=== PATIENT | female | born 1975 | race African-American/Black ===

== ENCOUNTER 2016-06-24 13:06 | Emergency (ER) | payer OTHER ==
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
[2016-06-24 13:22] VITALS: BP 119/70; PULSE 69; TEMP 98.7; BMI 22.4
== END 2016-06-24 14:13 | disposition home or self-care (01) ==
LOC: FER 13:06
DX: S41.151A Open bite of right upper arm, initial encounter (principal); W50.3XXA Accidental bite by another person, initial encounter; Y93.89 Activity, other specified; Y92.219 Unspecified school as the place of occurrence of the external cause; Y99.0 Civilian activity done for income or pay
CPT/HCPCS: 99282-25

== ENCOUNTER 2016-08-11 10:51 | Emergency (ER) | payer OTHER ==
[2016-08-11 11:04] VITALS: TEMP 98.1
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
[2016-08-11 11:07] VITALS: BMI 23.3
[2016-08-11] MEDS ORDERED: METOCLOPRAMIDE HCL INJECTION 10 MG/2 ML VIAL IVPB ONE (11:12)
[2016-08-11] MEDS ORDERED: MAGNESIUM SULF 50% (8.12 MEQ/2 ML-1 GM VIAL) IVPB ONE (11:13)
[2016-08-11] MEDS ORDERED: SODIUM CHLORIDE 1,000 ML IV SCH (11:15)
[2016-08-11 11:46] LABS: BASOPHIL 3.9 % (0-2.0); EOSINOPHIL 2.1 % (0-4.5); MCH 26.9 pg (25.7-33.7); MCHC 33.2 g/dl (32.0-36.0); MEAN CELL VOLUME 81.2 fl (80-96); MEAN PLT VOLUME 8.4 fl (7.5-11.1); NEUTROPHILS 64.9 % (42.8-82.8); PLATELET COUNT 235 K/MM3 (134-434); RDW 12.8 % (11.6-15.6); WHITE BLOOD COUNT 8.6 K/mm3 (4.0-10.8)
[2016-08-11 11:47] LABS: CALCIUM 9.4 mg/dl (8.4-10.2); COCKROFT - GAULT 91.834; CREATININE 0.8 mg/dl (0.6-1.3)
[2016-08-11] MEDS ORDERED: KETOROLAC TROMETHAMINE 30 MG/1 ML VIAL IVPUSH ONE (12:06)
[2016-08-11] MEDS ORDERED: KETOROLAC TROMETHAMINE 30 MG/1 ML VIAL ONE (12:30)
[2016-08-11] MEDS ORDERED: ACETAMINOPHEN 1000 MG/100 ML VIAL (NON FORMULARY) IVPB ONE (12:53)
[2016-08-11] MEDS ORDERED: ACETAMINOPHEN INJECTION 100 ML IVPB ONE (12:55)
[2016-08-11] MEDS ORDERED: PSEUDOEPHEDRINE HCL 30 MG TABLET ONE (12:59)
[2016-08-11] MEDS ORDERED: PSEUDOEPHEDRINE HCL 30 MG TABLET PO ONE (13:00)
[2016-08-11 13:38] VITALS: BP 116/70; PULSE 60
== END 2016-08-11 13:47 | disposition home or self-care (01) ==
LOC: FER 10:51
PROC: 3E033NZ Introduction of Analgesics, Hypnotics, Sedatives into Peripheral Vein, Percutaneous Approach (ICD-10-PCS; principal; 2016-08-11)
PROC: 3E0333Z Introduction of Anti-inflammatory into Peripheral Vein, Percutaneous Approach (ICD-10-PCS; 2016-08-11)
PROC: 3E033GC Introduction of Other Therapeutic Substance into Peripheral Vein, Percutaneous Approach (ICD-10-PCS; 2016-08-11)
PROC: 3E0337Z Introduction of Electrolytic and Water Balance Substance into Peripheral Vein, Percutaneous Approach (ICD-10-PCS; 2016-08-11)
DX: J01.30 Acute sphenoidal sinusitis, unspecified (principal); R00.2 Palpitations
CPT/HCPCS: 36415; 70450-TC; 80048; 84703; 85025; 99283-25

== ENCOUNTER 2016-12-02 10:08 | Emergency (ER) | payer OTHER ==
[2016-12-02 10:14] VITALS: BP 115/73; PULSE 73; TEMP 98.5; BMI 22.8
--- NOTE | 2016-12-02 11:14 | PDOC ---
History of Present Illness - General Chief Complaint: Cold Symptoms Stated Complaint: cold Time Seen by Provider: 12/02/16 10:15 - History of Present Illness Initial Comments: 12/02/16 11:35 Chief complaint: Congestion and facial pain History of present illness: Patient complains of cold symptoms for several days with nasal congestion, pain in the right cheek, low-grade fever. Denies productive cough, chest pain, or shortness of breath Review of systems: As above. Otherwise noncontributory Past medical history: Healthy female, mild asthma but no asthma symptoms for several years. 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 No tobacco alcohol or nonprescription drugs. Fully active and without disability Physical exam: Alert oriented 3 well-developed well-nourished, mild distress due to nasal congestion. Afebrile, vital signs normal Conjunctivae clear. PERRLA, fundi benign, ears clear. There is significant nasal congestion and tenderness over the right maxillary sinus to palpation. Throat mildly injected without exudates swelling or mass Neck supple without bruit mass or nodes Chest clear with full breath sounds throughout bilaterally, no wheezes rales or rhonchi CV regular without murmur rub or gallop Abdomen soft nontender without mass or organomegaly Skin clear, no rash, adequate turgor and wet mucous membranes Neurological C2 to 12 intact. No focal sensory or motor deficits. Strength full and symmetric. Gait stable and unimpaired Impression: Right maxillary sinusitis Plan: Since patient is ALLERGIC to penicillins, azithromycin, decongestants, expectorant, and ibuprofen prescribed. Rest and fluids and follow-up if no improvement recommended. Patient fully ambulatory and in no significant distress upon discharge to follow-up as directed Past History - Past Medical History Allergies/Adverse Reactions: Allergies Allergy/AdvReac Type Severity Reaction Status Date / Time Penicillins Allergy Intermediate Verified 12/02/16 10:10 Home Medications: Ambulatory Orders Azithromycin [Zithromax 250mg Tablets -] 250 mg PO UTDICT #6 tab 12/02/16 Fexofenadine/Pseudoephedrine [Milvia-D 24 Hour Tablet] 1 tab PO DAILY PRN #10 tab.er.24h 12/02/16 Guaifenesin AC [Robitussin-AC] 1 - 2 tsp PO HS PRN #90 ml MDD 10 12/02/16 Ibuprofen 600 mg PO TID PRN #20 tablet 12/02/16 Cardiac Disorders: Yes (PALPITATIONS) - Immunization History Immunization Up to Date: Yes - Suicide/Smoking/Psychosocial Hx Smoking Status: No Smoking History: Never smoked Have you smoked in the past 12 months: No Number of Cigarettes Smoked Daily: 1 Hx Alcohol Use: Yes Drug/Substance Use Hx: Yes Substance Use Type: Alcohol, Marijuana *Physical Exam - Vital Signs Last Vital Signs Temp Pulse Resp BP Pulse Ox 98.5 F 73 18 115/73 97 12/02/16 10:10 12/02/16 10:10 12/02/16 10:10 12/02/16 10:10 12/02/16 10:10 *DC/Admit/Observation/Transfer Diagnosis at time of Disposition: Sinusitis, acute Qualifiers: Sinusitis location: maxillary Recurrence: not specified as recurrent Qualified Code(s): J01.00 - Acute maxillary sinusitis, unspecified - Discharge Dispostion Disposition: HOME Condition at time of disposition: Stable Admit: No - Prescriptions Prescriptions: Fexofenadine/Pseudoephedrine [Milvia-D 24 Hour Tablet] 1 tab PO DAILY PRN #10 tab.er.24h PRN Reason: congestion Ibuprofen 600 mg PO TID PRN #20 tablet PRN Reason: pain, fever, body aches Guaifenesin AC [Robitussin-AC] 1 - 2 tsp PO HS PRN #90 ml MDD 10 PRN Reason: Cough Azithromycin [Zithromax 250mg Tablets -] 250 mg PO UTDICT #6 tab - Referrals Referrals: Yunier Smart MD [Staff Physician] - 1 week - Patient Instructions Printed Discharge Instructions: DI for Viral Upper Respiratory Infection -- Adult - Post Discharge Activity Forms/Work/School Notes: Back to Work
== END 2016-12-02 11:23 | disposition home or self-care (01) ==
LOC: FER 10:08
DX: J01.00 Acute maxillary sinusitis, unspecified (principal)
CPT/HCPCS: 99281-25

== ENCOUNTER 2017-03-13 11:39 | Emergency (ER) | payer OTHER ==
[2017-03-13 11:47] VITALS: BP 114/78; PULSE 86; TEMP 100.2; BMI 22.9
--- NOTE | 2017-03-13 11:52 | PDOC ---
History of Present Illness - General Chief Complaint: Cold Symptoms Stated Complaint: CONGESTION, BODY ACHES Time Seen by Provider: 03/13/17 11:45 History Source: Patient Exam Limitations: No Limitations - History of Present Illness Initial Comments: 03/13/17 11:49 42 y/o female with several days of sinus pressure, cough, body aches and mild headache. No N/V/D/C. Patient denies fall or trauma. Has taken OTC medications without relief. Severity: mild Modifying Factors: improves with: cold therapy Past History - Past Medical History Allergies/Adverse Reactions: Allergies Allergy/AdvReac Type Severity Reaction Status Date / Time Penicillins Allergy Intermediate Verified 03/13/17 11:41 Home Medications: Ambulatory Orders Acetaminophen [Tylenol] 325 mg PO QID #30 tablet 03/13/17 Azithromycin [Zithromax -] 250 mg PO UTDICT #6 tab 03/13/17 Oseltamivir Phosphate [Tamiflu] 75 mg PO BID #10 capsule 03/13/17 Cardiac Disorders: Yes (PALPITATIONS) COPD: No - Immunization History Immunization Up to Date: Yes - Suicide/Smoking/Psychosocial Hx Smoking Status: No Smoking History: Never smoked Have you smoked in the past 12 months: No Number of Cigarettes Smoked Daily: 1 Hx Alcohol Use: Yes Drug/Substance Use Hx: Yes Substance Use Type: Alcohol, Marijuana Review of Systems - Review of Systems Able to Perform ROS?: Yes Is the patient limited Serbian proficient: No Constitutional: Yes: Chills, Fever Respiratory: Yes: Cough. No: Shortness of Breath Cardiac (ROS): No: Chest Pain, Lightheadedness ABD/GI: No: Nausea, Vomiting : No: Dysuria Musculoskeletal: No: Back Pain Integumentary: No: Bruising All Other Systems: Reviewed and Negative *Physical Exam - Vital Signs Last Vital Signs Temp Pulse Resp BP Pulse Ox 100.2 F H 86 15 114/78 98 03/13/17 11:41 03/13/17 11:41 03/13/17 11:41 03/13/17 11:41 03/13/17 11:41 - Physical Exam General Appearance: Yes: Nourished, Appropriately Dressed. No: Apparent Distress HEENT: positive: EOMI, XOCHILT, Normal ENT Inspection, Normal Voice, Pharynx Normal Neck: positive: Trachea midline, Supple. negative: Normal Thyroid, Rigid Respiratory/Chest: positive: Lungs Clear, Normal Breath Sounds. negative: Chest Tender, Respiratory Distress Cardiovascular: positive: Regular Rhythm, Regular Rate, S1, S2. negative: Edema , JVD, Murmur Vascular Pulses: Femoral (R): 4+, Femoral (L): 4+, Carotid (R): 4+, Carotid (L) : 4+, Dorsalis-Pedis (R): 4+, Doralis-Pedis (L): 4+ Gastrointestinal/Abdominal: positive: Normal Bowel Sounds, Flat, Soft. negative : Tender, Organomegaly, Pulsatile Mass Lymphatic: negative: Adenopathy, Tenderness, Other Musculoskeletal: positive: Normal Inspection. negative: CVA Tenderness Extremity: positive: Normal Capillary Refill, Normal Inspection, Normal Range of Motion Integumentary: positive: Normal Color, Dry, Warm Neurologic: positive: wind energy technician II-XII NML intact, Fully Oriented, Alert, Normal Mood/ Affect, Normal Response, Motor Strength / ED Treatment Course - ADDITIONAL ORDERS Additional order review: 03/13/17 11:51 Pt appears to have underlying flu and a sinus infection. Will treat for both, pt is in agreement with plan *DC/Admit/Observation/Transfer Diagnosis at time of Disposition: Influenza Sinusitis Qualifiers: Sinusitis location: frontal Chronicity: acute Recurrence: not specified as recurrent Qualified Code(s): J01.10 - Acute frontal sinusitis, unspecified - Discharge Dispostion Disposition: HOME Condition at time of disposition: Good Admit: No - Referrals Referrals: Heriberto Gu MD [Primary Care Provider] - - Patient Instructions Printed Discharge Instructions: DI for Sinusitis, DI for Influenza -- Adult Additional Instructions: Fluids, rest, Tylenol Z-pack as directed Tamiflu 75 mg 2x/day for 5 days If worsen return to ER - Post Discharge Activity
== END 2017-03-13 12:09 | disposition home or self-care (01) ==
LOC: FER 11:39
DX: J11.1 Influenza due to unidentified influenza virus with other respiratory manifestations (principal); J01.10 Acute frontal sinusitis, unspecified; R00.2 Palpitations
CPT/HCPCS: 99281-25